=== PATIENT | female | born 1970 | race Caucasian/White ===

== ENCOUNTER 2023-06-25 16:41 | Emergency (ER) | payer OTHER, SELFPAY ==
[2023-06-25 16:44] VITALS: BP 178/89
[2023-06-25 17:19] LABS: % Basophils 0.7 % (0-2); % Eosinophils 2.9 % (0-6); % Immature Granulocytes 0.3 % (0-0.5); % Lymphocytes 38.9 % (20.5-51.1); % Monocytes 8.3 % (1.7-9.3); % Neutrophils 48.9 % (42.2-75.2); Absolute Basophils 0.1 10^3/uL (0-0.2); Absolute Eosinophils 0.2 10^3/uL (0-0.7); Absolute Lymphocytes 2.8 10^3/uL (1.2-3.4); Absolute Monocytes 0.6 10^3/uL (0.1-0.6); Absolute Neutrophils 3.6 10^3/uL (1.4-6.5); Hematocrit 37.1 % (37.0-47.0); Hemoglobin 12.9 g/dL (12.0-16.0); Mean Corp Hgb Conc. 34.8 g/dL (33.0-37.0); Mean Corpuscular Hgb 31.6 pg (27.0-31.0); Mean Corpuscular Volume 90.9 fL (81.0-99.0); Mean Platelet Volume 11.5 fL (7.4-10.4); Nucleated Red Blood Cells % 0 %; Platelet Count 239 10^3/uL (130-400); Red Blood Cell Count 4.08 10^6/uL (4.20-5.40); Red Cell Dist. Width 11.6 % (11.5-14.5); White Blood Cell Count 7.3 10^3/uL (4.8-10.8)
[2023-06-25 17:21] LABS: Urine Albumin Negative (Neg - Trace); Urine Bilirubin Negative (Negative); Urine Character Clear (Clear); Urine Color Straw; Urine Glucose Negative (Negative); Urine Ketone Negative (Negative); Urine Leukocyte Negative (Negative); Urine Nitrite Negative (Negative); Urine Occult Blood Negative (Negative); Urine Urobilinogen Negative (Neg - 1+)
[2023-06-25 17:35] LABS: ALT (SGPT) 18 U/L (0-35); AST (SGOT) 22 U/L (14-36); Albumin 4.4 g/dl (3.5-5.0); Alkaline Phosphatase 74 U/L (38-126); Blood Urea Nitrogen 19 mg/dl (7-17); Calcium 8.8 mg/dl (8.4-10.2); Carbon Dioxide 28 mmol/L (22-30); Chloride 100 mmol/L (98-107); Glucose 90 mg/dl (70-99); Potassium 4.4 mmol/L (3.5-5.1); Sodium 134 mmol/L (135-145); Total Bilirubin 0.3 mg/dl (0.2-1.3); Total Protein 7.1 g/dl (6.3-8.2); eGFR > 60.00
[2023-06-25 17:38] LABS: Alcohol None Detected
[2023-06-25 18:45] VITALS: BP 119/74; BMI 35.3
--- NOTE | 2023-06-25 19:39 | EDRN ---
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 Guy on the updates
--- NOTE | 2023-06-25 19:48 | EDRN ---
Crisis in speaking with patient
--- NOTE | 2023-06-25 20:33 | ED.GENMED ---
History of Present Illness
General
Chief Complaint: Change in Mental Status
Source: patient
Exam Limitations: none
Time Seen by Provider: 06/25/23 18:18
Nursing documentation reviewed up to this point in time: agreed with
Travel History
Have you had any contact with someone who has COVID-19?: No
Do you have any symptoms of coronavirus? Fever > 100 degrees, chills, cough, shortness of breath, sore throat, loss of taste or smell, muscle aches, or headache?: No
History of Present Illness
History of Present Illness:
Patient presents to ED for evaluation secondary to increased delusional thoughts, noted by family at home. Upon arrival, patient is alert, awake, and oriented, and appears agitated. Patient continues expressing desire to go home, as soon as she
arrived in ED. Denies suicidal or homicidal ideation. Denies recent illness. Patient otherwise has no complaints.
Past History
Past History
ED Past Medical History: HTN and Other (RA, Crohn's, Diverticulitis, IBS, Ovarian cysts, Kindey infarction); Negative Asthma
ED Past Surgical History: Other (Colostomy with revision, Hernia repair, TAHBSO, Abdominal reconstruction with mesh removal from hernia repair)
Social History
Tobacco: Smoker
Alcohol: None
Review of Systems
Review of Systems
Allergies reviewed?: Yes
All Other Systems: ROS reviewed and negative except as documented in HPI and ROS
Constitutional: Reports no symptoms
EENT: Reports no symptoms
Respiratory: Reports no symptoms
Cardiac: Reports no symptoms
ABD/GI: Reports no symptoms
: Reports no symptoms
Musculoskeletal: Reports no symptoms
Skin: Reports no symptoms
Neurological: Reports no symptoms
Psychiatric: Denies suicidal
Phy Exam
Physical Exam
Physical Exam:
Physical Exam
General: no apparent distress, not acutely ill. afebrile
Head: nc/at. eomi
Neck: supple. normal range of motion.
Neuro: alert and oriented. no focal neurological deficits
Skin: no rash
Psychiatric: well kept. interactive and cooperative
Extremities: no edema. no calf tenderness.
Course
Orders/Labs/Results
Orders:
Orders
06/25/23 16:49
CT Head W/o Iv Contrast Urgent
Comment:
Reason For Exam: altered mental status
06/25/23 17:05
Alcohol Urgent
Complete Blood Count/With Diff Urgent
Comprehensive Metabolic Panel Urgent
Urinalysis Reflex To Culture Urgent
Date Specimen was Collected: 06/25/23
Time Specimen was Collected: 16:49
06/25/23 19:38
Crisis Consult Urgent
Reason for Consult: hallucinations
Abnormal Lab Results
06/25/23
17:05
RBC 4.08 L 10^6/uL
(4.20-5.40)
MCH 31.6 H pg
(27.0-31.0)
MPV 11.5 H fL
(7.4-10.4)
Sodium 134 L mmol/L
(135-145)
BUN 19 H mg/dl
(7-17)
06/25/23 17:05
06/25/23 17:05
Vital Signs
Initial and Last Documented VS:
Initial Vital Signs
Temp Pulse Resp BP Pulse Ox
98.3 F 86 20 178/89 99
06/25/23 16:44 06/25/23 16:44 06/25/23 16:44 06/25/23 16:44 06/25/23 16:44
Last Documented Vital Signs
Temp Pulse Resp BP Pulse Ox
98 F 80 16 119/74 96
06/25/23 18:45 06/25/23 18:45 06/25/23 18:45 06/25/23 18:45 06/25/23 18:45
MDM/Problems Addressed
MDM/Problems Addressed:
CT head: No acute findings. Patient remains hemodynamically stable and neurologically intact. Patient is mentally competent and answering appropriately to simple questions. As such, there is no grounds to continue further evaluation against
patient's wishes to be discharged home.
Patient also evaluated by [facility] and outpatient resources provided, as previous 302 petition was denied and there has not been any new developments in her symptoms.
*Critical Care Note
Total Time (30-74mins, 75-104mins- exclusive of procedures): Not Applicable
ED Attending Note
-
Portions of this chart may have been created with voice recognition software.� Occasional wrong word or��sound alike� substitutions may have occurred due to the inherent limitations of voice recognition software.
Discharge Plan
Departure
Patient Disposition: Home (Routine Discharge)
Date of Disposition: 06/25/23
Time of Disposition: 20:33
Patient with high blood pressure during this ER visit?: Yes
Discharge Problem:
Encounter for medical screening examination
Instructions: BLOOD PRESSURE
Prescriptions:
No Action
gabapentin 300 MG capsule
300 mg PO HS
alprazolam 1 MG tablet
1 mg PO TID PRN (Reason: anxiety)
Patient Comments:
06/19/2023: last filled 06/15/23, 90 tabs for 30 days from [facility]
sertraline 100 mg tablet
150 mg PO DAILY
prednisone 1 mg tablet
4 mg PO DAILY
hydroxychloroquine 200 mg tablet
200 mg PO DAILY
oxycodone 10 mg tablet
10 mg PO Q4H PRN (Reason: moderate pain)
Patient Comments:
06/19/2023: last filled 06/11/23, 180 tabs for 30 days from [facility]
chlorzoxazone 500 mg tablet
250 mg PO TID
loratadine 10 mg Tablet
10 mg PO DAILY
cholecalciferol (vitamin D3) [Vitamin D3] 125 mcg (5,000 unit) Tablet
125 mcg PO DAILY
turmeric 400 mg Capsule
400 mg PO DAILY
haloperidol 0.5 mg tablet
0.5 mg PO BID Qty: 14 0RF
Patient Comments:
06/19/2023: last filled 06/15/23, 30 tabs for 30 days from [facility]
Referrals:
Anais Wills DO [Family Provider] -
Activity Restrictions/Additional Instructions:
As discussed, please follow-up with your primary care physician and psychiatrist for further evaluation and treatment
Interventions
Interventions:
*Risk Screen - Suicide Last Done: 06/25/23 16:44
*General Assessment Last Done: 06/25/23 16:44
*Neglect/Abuse Screening Last Done: 06/25/23 16:44
ED- Fall Risk Assessment Last Done: 06/25/23 18:45
*ED COVID-19 Vaccine History Last Done: 06/25/23 18:45
*Nursing Disposition Last Done: 06/25/23 20:38
ED- Pulmonary Assessment Last Done: 06/25/23 20:38
ED-Psychological Assessment Last Done: 06/25/23 18:45
ED- Neurological Assessment Last Done: 06/25/23 18:45
ED- Cardiac Assessment Last Done: 06/25/23 20:38
Discharge Date and Time
Discharge Date/Time: 06/25/23 20:40
--- NOTE | 2023-06-25 20:33 | EDRN ---
Patient in [facility] saying she needs to leave 'to go channel people and have a cigarette', Dr. Guy guides patient into room and talks with her, patietn will be leaving with discharge paperwork.
== END 2023-06-25 20:40 | disposition home or self-care (01) ==
LOC: EMR 16:41
PROVIDERS: EMERGENCY PHYSICIAN Emergency Medicine; FAMILY PHYSICIAN Family Medicine
DX: Z00.00 Encounter for general adult medical examination without abnormal findings (principal); F17.200 Nicotine dependence, unspecified, uncomplicated; I10 Essential (primary) hypertension
CPT/HCPCS: 99284; 70450; 80053; 81003; 82077; 85025

== ENCOUNTER 2023-10-23 16:44 | Emergency (ER) | payer OTHER, SELFPAY ==
[2023-10-23 16:54] VITALS: BP 162/94; BMI 36.2
[2023-10-23 17:21] LABS: % Basophils 0.6 % (0-2); % Eosinophils 0.2 % (0-6); % Immature Granulocytes 0.3 % (0-0.5); % Lymphocytes 24.8 % (20.5-51.1); % Neutrophils 67.1 % (42.2-75.2); Absolute Basophils 0.1 10^3/uL (0-0.2); Absolute Lymphocytes 2.5 10^3/uL (1.2-3.4); Absolute Monocytes 0.7 10^3/uL (0.1-0.6); Absolute Neutrophils 6.9 10^3/uL (1.4-6.5); Hematocrit 44.2 % (37.0-47.0); Hemoglobin 15.1 g/dL (12.0-16.0); Mean Corp Hgb Conc. 34.2 g/dL (33.0-37.0); Mean Corpuscular Hgb 30.9 pg (27.0-31.0); Mean Corpuscular Volume 90.6 fL (81.0-99.0); Mean Platelet Volume 10.2 fL (7.4-10.4); Nucleated Red Blood Cells % 0 %; Platelet Count 325 10^3/uL (130-400); Red Blood Cell Count 4.88 10^6/uL (4.20-5.40); Red Cell Dist. Width 13.4 % (11.5-14.5); White Blood Cell Count 10.2 10^3/uL (4.8-10.8)
[2023-10-23 17:26] LABS: Urine Albumin 1+ (Neg - Trace); Urine Bilirubin Negative (Negative); Urine Character Clear (Clear); Urine Color Yellow; Urine Glucose Negative (Negative); Urine Ketone Negative (Negative); Urine Leukocyte Trace (Negative); Urine Nitrite Negative (Negative); Urine Occult Blood Negative (Negative); Urine Urobilinogen Negative (Neg - 1+); Urine pH 6.5 (5.0-9.0)
[2023-10-23 17:35] LABS: Blood Urea Nitrogen 13 mg/dl (7-17); Carbon Dioxide 30 mmol/L (22-30); Chloride 98 mmol/L (98-107); Estimated Creatinine Clearance 110 ml/min; Glucose 107 mg/dl (70-99); Potassium 4.3 mmol/L (3.5-5.1); Sodium 137 mmol/L (135-145); eGFR > 60.00
[2023-10-23 17:36] LABS: Alcohol None Detected
[2023-10-23 17:37] LABS: Urine Squamous Cell >30 /LPF (Few)
[2023-10-23 17:38] LABS: Urine Bacteria Many (Negative); Urine Red Blood Cell 0-2 /HPF (0-2)
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
[2023-10-23 22:48] LABS: Amphetamines Negative (Negative); Barbiturates Negative (Negative); Benzodiazepines Positive (Negative); Buprenorphine Negative (Negative); Cocaine Negative (Negative); Marijuana Positive (Negative); Methadone Negative (Negative); Methamphetamines Negative (Negative); Opiates Negative (Negative); Phencyclidine Negative (Negative); Tricyclic Antidepressants Negative (Negative)
[2023-10-23 23:14] LABS: Fentanyl, Urine Negative (Negative)
[2023-10-24] MEDS: XANAX 1 MG PO ×2 (05:21→15:43)
[2023-10-24 08:43] VITALS: BP 153/79
[2023-10-24] MEDS: ZOLOFT 150 MG PO (09:17)
[2023-10-24] MEDS: CLARITIN 10 MG PO (09:17)
[2023-10-24] MEDS: PLAQUENIL 200 MG PO (09:52)
[2023-10-24] MEDS: NICODERM TRANSDERMAL 14 MG TRANSDERM (09:52)
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
[2023-10-24] MEDS: ABILIFY 2 MG PO (14:07)
[2023-10-24] MEDS: ROXICODONE 10 MG PO ×2 (14:07→20:45)
[2023-10-24] MEDS: NON-FORMULARY ITEM 1 UNIT SC (15:33)
[2023-10-24 16:21] LABS: Troponin I 0.015 ng/ml
== END 2023-10-24 21:22 ==
LOC: EMR 16:44
PROVIDERS: Emergency Medicine; EMERGENCY PHYSICIAN Emergency Medicine; OTHER PHYSICIAN Psychiatry & Neurology Psychiatry
DX: F23 Brief psychotic disorder (principal); F41.9 Anxiety disorder, unspecified; R44.3 Hallucinations, unspecified; F44.81 Dissociative identity disorder; G47.9 Sleep disorder, unspecified; I10 Essential (primary) hypertension; K50.90 Crohn's disease, unspecified, without complications; M06.9 Rheumatoid arthritis, unspecified; K57.92 Diverticulitis of intestine, part unspecified, without perforation or abscess without bleeding; K58.9 Irritable bowel syndrome, unspecified; F17.210 Nicotine dependence, cigarettes, uncomplicated; Z88.1 Allergy status to other antibiotic agents; Z88.5 Allergy status to narcotic agent; Z88.2 Allergy status to sulfonamides
CPT/HCPCS: 99285; 96372; 80048; 80306; 80307; 81003; 81015; 82077; 84484; 85025; 87086; 93005